=== PATIENT | female | born 1990 | race Caucasian/White ===

== ENCOUNTER 2024-06-18 04:12 | Inpatient (IN) | payer BC ==
[2024-06-18 04:35] VITALS: BMI 36.3
[2024-06-18] MEDS ORDERED: Methylergonovine 0.2 MG/ML VIAL IM PRN (05:00)
[2024-06-18] MEDS ORDERED: Oxytocin 30 units/NS 500 ML 500 ML IV SCH (05:00)
[2024-06-18] MEDS ORDERED: Carboprost 250 MCG/ML AMP IM PRN (05:00)
[2024-06-18] MEDS ORDERED: hydrALAZINE 20 MG/ML VIAL SLOW IVP PRN ×2 (05:00→07:26)
[2024-06-18] MEDS ORDERED: Tranexamic Acid 1,000 MG/10 ML VIAL IVP PRN (05:00)
[2024-06-18] MEDS ORDERED: Lactated Ringer's 1,000 ML IV SCH (05:00)
[2024-06-18] MEDS ORDERED: Promethazine HCl 25 MG/ML VIAL IM PRN ×2 (05:00→07:26)
[2024-06-18] MEDS ORDERED: Penicillin G Potassium 5 MILL.UNITS in Sodium Chloride 0.9% 100 ML IVPB SCH (05:00)
[2024-06-18] MEDS ORDERED: Misoprostol 200 MCG TAB PR PRN (05:00)
[2024-06-18] MEDS ORDERED: Lidocaine 1% (PF) 30 ML VIAL SC PRN (05:00)
[2024-06-18] MEDS ORDERED: Diphenoxylate HCl/Atropine Tablet PO PRN (05:00)
[2024-06-18] MEDS ORDERED: Ondansetron PF 4 MG/2 ML Vial IVP PRN ×2 (05:00→07:26)
[2024-06-18 07:06] LABS: HIV (1/2) Antibody/Antigen Non-Reactive (NonReactive); HIV 1/2 INDEX 0.13 S/CO (<1.00); Hematocrit 40.2 % (34.9-44.5); Hemoglobin 13.8 g/dL (12.0-15.5); Hep B Surf Ag - L&D Non-Reactive S/CO (NonReactive); Mean Corpuscular HGB CONC 34.3 g/dL (32.0-36.0); Mean Corpuscular Hemoglobin 31.4 pg (27.0-33.0); Mean Corpuscular Volume 91.6 fL (81.6-98.3); Mean Platelet Volume 12.3 fL (7.4-10.4); Platelet Count 185 10x3/uL (150-450); RBC Distribution Width 13.2 % (11.5-14.5); Red Blood Cell (RBC) Count 4.39 10x6/uL (3.90-5.03); Syphilis Antibody Nonreactive (Nonreactive); Syphilis Antibody Index 0.04 S/CO (<1.00 Non-Reactive); White Blood Cell (WBC) Count 11.4 10x3/uL (3.5-10.5)
[2024-06-18] MEDS ORDERED: Boostrix 0.5 ML (Tdap) VIAL (>/=7 yrs of age) IM ONE (07:26)
[2024-06-18] MEDS: Acetaminophen 500 MG TAB PO PRN (07:26)
[2024-06-18] MEDS ORDERED: Lanolin Ointment 7 GM TUBE TOP PRN (07:26)
[2024-06-18] MEDS ORDERED: HYDROcodone/Acetaminophen 5/325 mg Tablet PO PRN ×2 (07:26)
[2024-06-18] MEDS ORDERED: Benzocaine-Menthol 82.5 ML CAN TOP PRN (07:26)
[2024-06-18] MEDS ORDERED: Milk Of Magnesia 30 ML UDCUP PO PRN (07:26)
[2024-06-18] MEDS ORDERED: Bisacodyl 10 MG SUPP PR PRN (07:26)
[2024-06-18] MEDS ORDERED: Preparation H Ointment 28 GM TUBE PR PRN (07:26)
[2024-06-18] MEDS ORDERED: diphenhydrAMINE 25 MG CAP PO PRN (07:26)
[2024-06-18] MEDS: Ibuprofen 800 MG TAB PO SCH (08:02)
[2024-06-18] MEDS: Prenatal Vitamin 1 TAB PO SCH (08:03)
[2024-06-18] MEDS: Docusate 100 MG CAP PO SCH (08:03)
[2024-06-18] MEDS: Ferrous Sulfate 325 MG TAB PO SCH (08:03)
[2024-06-18] MEDS: Lidocaine 1% (PF) 30 ML VIAL ONE (08:03)
[2024-06-18] MEDS ORDERED: Penicillin G 2.5 MILL.units 2.5 MILL.UNITS in Premix 1 BAG IVPB SCH (09:00)
[2024-06-19 11:38] VITALS: BP 136/76; TEMP 98.8
== END 2024-06-19 13:28 | disposition home or self-care (01) | DRG 807 ==
LOC: CSHLD/OP 04:12 → CSHLD 05:00 → CSHPED 08:20
PROVIDERS: ADMIT Student in an Organized Health Care Education/Training Program; ATTEND Student in an Organized Health Care Education/Training Program
PROC: 10E0XZZ Delivery of Products of Conception, External Approach (ICD-10-PCS; principal; 2024-06-18)
PROC: 0HQ9XZZ Repair Perineum Skin, External Approach (ICD-10-PCS; 2024-06-18)
DX: O99.62 Diseases of the digestive system complicating childbirth (principal); Z37.0 Single live birth; O99.284 Endocrine, nutritional and metabolic diseases complicating childbirth; Z3A.39 39 weeks gestation of pregnancy; E03.9 Hypothyroidism, unspecified; Z79.890 Hormone replacement therapy; K21.9 Gastro-esophageal reflux disease without esophagitis; Z79.899 Other long term (current) drug therapy; O70.0 First degree perineal laceration during delivery
CPT/HCPCS: 85027; 86780; 86850; 86900; 86901; 87340; 87389; 99285